=== PATIENT | male | born 1980 | race Caucasian/White ===

== ENCOUNTER 2022-01-21 14:07 | Emergency (ER) | payer OTHER ==
[~2022-01-21] VITALS: Ht 172.7 cm; Wt 127.0 kg
[~2022-01-21 14:07] MED LIST: HYDHOMSY PO; LORA10ER PO
[2022-01-21] MEDS ORDERED: LOSA25 PO (18:29)
[2022-01-21] MEDS ORDERED: CYCL10 PO (18:32)
[2022-01-21] MEDS ORDERED: Naprosyn500 MG PO (18:32)
== END 2022-01-21 18:50 | disposition home or self-care (01) ==
LOC: ER 14:07
DX: M54.50 Low back pain, unspecified (principal); G89.29 Other chronic pain; Z79.899 Other long term (current) drug therapy
CPT/HCPCS: 72100; J1885